=== PATIENT | male | born 1960 | race Caucasian/White ===

== ENCOUNTER 2016-07-15 10:04 | Day surgery (SDC) | payer MEDICAID ==
[2016-07-15] MEDS ORDERED: LACTATED RINGERS 1,000 ML IV ONE (10:38)
[2016-07-15] MEDS ORDERED: MIDAZOLAM 2 MG/2 ML VIAL IVP ONE (12:41)
[2016-07-15] MEDS ORDERED: fentaNYL 250 MCG/5 ML VIAL IVP ONE (12:41)
== END 2016-07-15 10:05 | disposition home or self-care (01) ==
PROC: 0DJD8ZZ Inspection of Lower Intestinal Tract, Via Natural or Artificial Opening Endoscopic (ICD-10-PCS; principal; 2016-07-15 11:15)
DX: Z12.11 Encounter for screening for malignant neoplasm of colon (principal); K64.8 Other hemorrhoids
CPT/HCPCS: 45378; J3010; J7120

== ENCOUNTER 2018-02-16 10:52 | Outpatient (CLI) | payer MEDICAID ==
--- NOTE | 2018-02-16 15:36 | XRAY Report ---
Reason: KNEE PAIN, LEFT Procedure Date: 02/16/2018 Accession Number: [id number] / [id number] Procedure: XR - Knee 3 View LT CPT Code: FULL RESULT: EXAM: LEFT KNEE RADIOGRAPHY EXAM DATE: 02/16/2018 11:18 AM. CLINICAL HISTORY: Knee pain, left. COMPARISON: None. TECHNIQUE: 3 views. FINDINGS: There is cortical irregularity about the lateral tibial eminence, possibly posttraumatic finding. Mild spurring is seen along the patella with no significant associated degenerative changes in the weightbearing compartments. No fractures or bone lesions. There is no joint effusion. Soft tissues are unremarkable. IMPRESSION: Irregularity about the lateral tibial eminence. RADIA
== END 2018-02-16 10:53 | disposition home or self-care (01) ==
LOC: DI 10:52
PROVIDERS: ATTEND Physician Assistant Medical
DX: M25.562 Pain in left knee (principal)

== ENCOUNTER 2020-04-25 08:00 | Outpatient (CLI) | payer MEDICAID | END 2020-04-25 23:59 | disposition home or self-care (01) | LOC: LAB.R 08:00 | PROVIDERS: ATTEND Orthopaedic Surgery | DX: S42.022A Displaced fracture of shaft of left clavicle, initial encounter for closed fracture (principal); Z20.828 Contact with and (suspected) exposure to other viral communicable diseases ==

== ENCOUNTER 2020-04-25 08:16 | Outpatient (CLI) | payer MEDICAID ==
--- NOTE | 2020-04-25 14:54 | XRAY Report ---
PROCEDURE: Clavicle LT INDICATIONS: L CLAVICLE FX TECHNIQUE: 2 views of the clavicle were acquired. COMPARISON: None. FINDINGS: Bones: There is a comminuted mid left clavicular fracture with approximately 15 mm overlap of proxima l and distal fragments. The more proximal fragment is approximately 9 mm superior to the distal fragm ent. The acromioclavicular joint space is widened measuring 13 mm. No suspicious bony lesions. Soft tissues: No suspicious soft tissue calcifications. IMPRESSION: Comminuted mid left clavicular fracture. Reviewed by: Vi Nielsen MD on 04/25/2020 2:52 PM PST Approved by: Vi Nielsen MD on 04/25/2020 2:52 PM PST Station ID: [id number]
== END 2020-04-25 23:59 | disposition home or self-care (01) ==
LOC: DI.N 08:16
PROVIDERS: ATTEND Orthopaedic Surgery
DX: S42.022A Displaced fracture of shaft of left clavicle, initial encounter for closed fracture (principal)

== ENCOUNTER 2020-04-27 10:56 | Day surgery (SDC) | payer MEDICAID ==
[2020-04-27] MEDS ORDERED: LACTATED RINGERS 1,000 ML IV ONE ×2 (11:01→14:00)
[2020-04-27] MEDS ORDERED: ceFAZolin 2 GM/50 ML 2 GM/50 ML BAG IV ONE (11:04)
[2020-04-27] MEDS ORDERED: CELECOXIB 100 MG CAPSULE PO ONE (11:04)
[2020-04-27] MEDS ORDERED: GABAPENTIN 400 MG CAPSULE ONE (11:04)
[2020-04-27] MEDS ORDERED: ACETAMINOPHEN 1,000 MG/100 ML 100 ML IV ONE (11:05)
--- NOTE | 2020-04-27 11:39 | ANESTHESIA ---
Pre-Anesthesia VS, & Labs - Diagnosis fx L clavicle - Procedure ORIF L clavicle, intermed rodding Vital Signs: Temp Pulse Resp BP Pulse Ox 36.3 C L 94 16 147/100 H 96 04/27/20 11:02 04/27/20 11:02 04/27/20 11:02 04/27/20 11:02 04/27/20 11:02 Height: 5 ft 8 in Weight (kg): 71.9 kg Body Mass Index: 24.0 BMI Classification: Healthy weight - NPO >8 hours - Lab Results Lab results reviewed: Yes Home Medications and Allergies No Known Home Medications 07/15/16 Allergies/Adverse Reactions: Allergies Allergy/AdvReac Type Severity Reaction Status Date / Time No Known Drug Allergies Allergy Verified 07/15/16 10:26 Anes History & Medical History - Anesthetic History Anesthesia Complications: reports: No previous complications Family history of Anesthesia Complications: Denies Family history of Malignant Hyperthermia: Denies - Medical History Cardiovascular: reports: None Pulmonary: reports: Other Gastrointestinal: reports: None Urinary: reports: None, Other (one kidney) Musculoskeletal: reports: Chronic back pain Endocrine/Autoimmune: reports: None Skin: reports: None - Surgical History General: Splenectomy, Colonoscopy Urologic: Nephrectomy Orthopedic: Other Exam General: Alert, Oriented x3, Cooperative Dental: WNL Mouth Openin Fingerbreadth Neck Mobility: Normal Mallampati classification: I Thyromental Distance: 4-6 cm Respiratory: Lungs clear, Normal breath sounds, No respiratory distress Cardiovascular: Regular rate Neurological: Normal speech Mental/Cognitive Status: Alert/Oriented X3, Normal for patient Cognitive Status: Within normal limits Plan Anesthesia Type: General Consent for Procedure(s) Verified and Reviewed: Yes Code Status: Attempt Resuscitation ASA classification: 2-Mild systemic disease Is this case an emergency?: No
[2020-04-27] MEDS ORDERED: ROPIVACAINE 0.2% PF 20ML VIAL ONE (11:45)
[2020-04-27] MEDS ORDERED: ROPIVACAINE 0.5% PF 20 ML AMPULE ONE (11:45)
[2020-04-27] MEDS ORDERED: fentaNYL 100 MCG/2 ML VIAL ONE (11:54)
[2020-04-27] MEDS ORDERED: MIDAZOLAM 2 MG/2 ML VIAL ONE ×2 (11:54→12:03)
[2020-04-27] MEDS ORDERED: LIDOCAINE-MPF 2% 5 ML VIAL ONE (11:58)
[2020-04-27] MEDS ORDERED: PROPOFOL 200 MG/20 ML VIAL IVP ONE (11:58)
[2020-04-27] MEDS ORDERED: SUCCINYLCHOLINE 200 MG/10 ML VIAL ONE (11:59)
[2020-04-27] MEDS ORDERED: ONDANSETRON 4 MG/2 ML VIAL ONE (12:02)
[2020-04-27] MEDS ORDERED: DEXAMETHASONE 10 MG/ML VIAL ONE (12:03)
[2020-04-27] MEDS ORDERED: ROPIVACAINE 0.5% PF 20 ML AMPULE SUBQ ONE (12:25)
[2020-04-27] MEDS ORDERED: fentaNYL 100 MCG/2 ML VIAL IVP PRN (12:35)
[2020-04-27] MEDS ORDERED: ePHEDrine 50 MG/ML VIAL IVP PRN (12:35)
[2020-04-27] MEDS ORDERED: METOCLOPRAMIDE 10 MG/2 ML VIAL IVP PRN (12:35)
[2020-04-27] MEDS ORDERED: ONDANSETRON 4 MG/2 ML VIAL IVP PRN ×2 (12:35→13:38)
[2020-04-27] MEDS ORDERED: MORPHINE 2 MG/ML CARPUJECT IVP PRN (12:35)
[2020-04-27] MEDS ORDERED: ATROPINE ABBOJECT 1 MG/10 ML SYRINGE IVP PRN (12:35)
[2020-04-27] MEDS ORDERED: NALOXONE 0.4 MG/ML VIAL IVP PRN (12:35)
[2020-04-27] MEDS ORDERED: LACTATED RINGERS 1,000 ML IV SCH (13:00)
[2020-04-27] MEDS ORDERED: HYDROcod/ACETAM 5/325 MG TABLET PO PRN (13:38)
[2020-04-27] MEDS ORDERED: LACTATED RINGERS 200 ML IV ONE (13:40)
--- NOTE | 2020-04-27 13:49 | OPERATIVE REPORT ---
Operative Report - General Procedure Date: 04/27/20 - Other Other Information/Narrative: Date of procedure: 04/27/2020 Preoperative diagnosis: comminuted left midshaft clavicle fracture Postoperative diagnosis: Same Procedure: Intramedullary nail fixation left clavicle shaft fracture with augmentation with locking plate Surgeon: Vick Implants: Acumed dual track nail, 3.8 x 100mm; superior locking plate Anesthesia: General Preamble: This healthy [id number] 60-year-old sustained a left clavicle fracture a few days ago. After discussion of operative and nonoperative management, patient elected to proceed with intramedullary nail fixation of his left clavicle fracture. He was seen in the preoperative holding area. Surgical site was marked. Consent and surgical site was confirmed. Patient received intravenous antibiotics preoperatively for prophylaxis against infection. He was then taken to the operating room. Operative note: Patient was placed in supine position with a saline bag in the midline to allow his shoulders to fall back. General anesthetic was administered. Upper chest and shoulder were then prepped and draped in usual sterile fashion. Incision then made in Litzy's lines centered over the fracture site. Skin subcutaneous tissue was tested with a scalpel. Blunt dissection carried out to the fracture and bone ends were cleared of soft tissues.Lateral segment was then delivered into the wound. It was then sequentially reamed by hand up to the 3.8 mm T-handle reamer. In similar fashion the medial segment was reamed by hand. The 3.8 mm drill was then advanced into the lateral segment and out the skin at the superior posterior clavicle. It was then passed medially across the fracture site and into the medial segment. Measured to 100 mm. The 7 mm drill was then passed through the stab incision over the superior shoulder, however blew out the posterior aspect of the distal segment. The nail was then fully seated by hand however fixation was tenuous. I therefore elected to augment fixation with a plate. An Acumed locking plate was then selected and placed on the superior aspect of the clavicle. Provisionally fixed with K wires in production position and reduction was confirmed on fluoroscopy. Plate was then secured to medially and laterally with multiple locking and nonlocking screws. Fluoroscopy used to confirm position and reduction. Final images were saved. Wound was thoroughly irrigated with normal saline. Closed in layers with 0 V-Loc, 2-0 Vicryl, 3 OV lock and Dermabond. Sterile dressings and applied followed by a sling. Patient was transferred to regular hospital and taken to recovery room stable condition with no intraoperative complications. Postoperative plan: Check x-ray in recovery. Discharge home when able. Dressing change postop day 5. Pendulum to active assisted shoulder range of motion as tolerated. Wean from sling as tolerated. No lifting over 25 pounds with the left arm. No overhead use of the arm. Follow-up in 7 to 10 days for wound check.
[2020-04-27] MEDS: HYDROmorphone 0.5 MG/0.5 ML SYRINGE IVP PRN ×2 (14:07→14:13)
[2020-04-27] MEDS ORDERED: HYDROmorphone 0.5 MG/0.5 ML SYRINGE ONE (14:15)
--- NOTE | 2020-04-27 14:26 | XRAY Report ---
PROCEDURE: OR C-Arm Procedure INDICATIONS: ORIF LEFT CLAVICLE TECHNIQUE: Intraoperative evaluation with 2 views COMPARISON: Prior clavicular plain films 3 days ago reviewed.. FINDINGS: There is a longitudinal cancellous screw traversing the fracture plane, in addition to a fixation natalie te with transverse fixation screws establishing normal alignment after open reduction. IMPRESSION: Normal clavicular alignment established for healing after ORIF. Reviewed by: Rafael Paz MD on 04/27/2020 2:24 PM PST Approved by: Rafael Paz MD on 04/27/2020 2:24 PM PST Station ID: [id number]
[2020-04-27 14:41] VITALS: BP 153/97
--- NOTE | 2020-04-27 14:44 | XRAY Report ---
PROCEDURE: Clavicle LT INDICATIONS: postop TECHNIQUE: 2 views of the clavicle were acquired. COMPARISON: Intraoperative plain film imaging same day reviewed.. FINDINGS: Bones: No previously unidentified fractures or dislocations. Normal alignment established after an axially oriented along cancellous screw has been placed crossing the fracture planes, in addition to a superior fixation plate and 3 transverse cortical screws both proximally and distally No suspicious bony lesions. Soft tissues: No suspicious soft tissue calcifications. IMPRESSION: Normal anatomic alignment established for healing after ORIF. Reviewed by: Rafael Paz MD on 04/27/2020 2:42 PM PST Approved by: Rafael Paz MD on 04/27/2020 2:42 PM PST Station ID: [id number]
[2020-04-27] MEDS ORDERED: HYDROcod/ACETAM 5/325 MG TABLET ONE (15:04)
--- NOTE | 2020-04-27 15:05 | ANESTHESIA POST OP EVALUATION ---
Anesthesia Post Eval - Post Anesthesia Eval Vitals: Last Vital Signs Temp 36.3 C L 04/27/20 14:40 Pulse 78 04/27/20 14:40 Resp 14 04/27/20 14:40 BP 153/97 H 04/27/20 14:40 Pulse Ox 94 04/27/20 14:40 CV Function Including HR & BP: positive: Stable Pain Control: positive: Satisfactory Nausea & Vomiting: positive: Negative Mental Status: positive: Baseline Respiratory Status: Airway Patent Hydration Status: Satisfactory Anesthesia Complications: positive: None
== END 2020-04-27 10:57 | disposition home or self-care (01) ==
LOC: SDS 10:56
PROVIDERS: ATTEND Orthopaedic Surgery
DX: Z90.5 Acquired absence of kidney (principal); S42.022A Displaced fracture of shaft of left clavicle, initial encounter for closed fracture; V48.4XXA Person boarding or alighting a car injured in noncollision transport accident, initial encounter
CPT/HCPCS: 23515; 73000; A9270; C1713; J0131; J0330; J0690; J1170; J7120

== ENCOUNTER 2020-06-02 07:16 | Outpatient (CLI) | payer MEDICAID ==
--- NOTE | 2020-06-03 09:42 | XRAY Report ---
PROCEDURE: Clavicle LT INDICATIONS: DISPLACED LT CLAVICLE Fx TECHNIQUE: 2 views of the clavicle were acquired. COMPARISON: 04/27/2020 FINDINGS: Bones: Postsurgical changes of ORIF with plate and screw fixation of the mid clavicle fracture. There is continued osseous remodeling suggestive of partial interval healing. There is mild elevation of t he distal clavicle and mild widening of the chromic clavicular interval measuring approximately 9 mm. The coracoclavicular interval is within normal limits. Soft tissues: No suspicious soft tissue calcifications. IMPRESSION: Postsurgical changes of ORIF of the mid clavicle fracture with signs of partial interval healing. Slight elevation of the distal clavicle with mild widening of a chronic clavicular interval concernin g for AC joint separation. Reviewed by: Al Burks DO on 06/03/2020 8:40 AM MAIKOL Approved by: Al Burks DO on 06/03/2020 8:40 AM MAIKOL Station ID: [id number]
== END 2020-06-02 23:59 | disposition home or self-care (01) ==
LOC: DI.N 07:16
PROVIDERS: ATTEND Orthopaedic Surgery
DX: S42.022D Displaced fracture of shaft of left clavicle, subsequent encounter for fracture with routine healing (principal)

== ENCOUNTER 2020-06-23 08:00 | Outpatient (CLI) | payer MEDICAID ==
[2020-06-23 12:07] LABS: BASOPHILS # (AUTO) 0.1 10^3/uL (0.0-0.1); EOSINOPHILS # (AUTO) 0.3 10^3/uL (0.0-0.7); EOSINOPHILS % (AUTO) 5.1 %; HGB - HEMOGLOBIN 14.7 g/dL (14.0-18.0); LYMPHOCYTES # (AUTO) 2.2 10^3/uL (1.5-3.5); LYMPHOCYTES % (AUTO) 43.8 %; MEAN CORPUSCULAR HEMOGLOBIN 31.5 pg (27.0-31.0); MEAN CORPUSCULAR VOLUME 95.5 fL (80.0-94.0); MEAN PLATELET VOLUME 11.3 fL (7.4-11.4); MONOCYTES # (AUTO) 0.7 10^3/uL (0.0-1.0); MONOCYTES % (AUTO) 14.1 %; NEUTROPHILS # (AUTO) 1.8 10^3/uL (1.5-6.6); NEUTROPHILS % (AUTO) 35.8 %; PLT - PLATELET COUNT 308 10^3/uL (130-450); RED BLOOD COUNT 4.67 10^6/uL (4.70-6.10); RED CELL DISTRIBUTION WIDTH 12.9 % (12.0-15.0); WHITE BLOOD COUNT 5.1 x10^3/uL (4.8-10.8)
[2020-06-23 12:30] LABS: ALBUMIN 4.2 g/dL (3.2-5.5); ALBUMIN/GLOBULIN RATIO 1.2 (1.0-2.2); ALKALINE PHOSPHATASE 56 IU/L (42-121); ALT ALANINE AMINOTRANSFERASE 20 IU/L (10-60); AST ASPARTATE AMINOTRANSFERASE 22 IU/L (10-42); BILIRUBIN,TOTAL 1.1 mg/dL (0.2-1.0); BUN - BLOOD UREA NITROGEN 16 mg/dL (6-20); CALCIUM 9.6 mg/dL (8.5-10.3); CARBON DIOXIDE - CO2 26 mmol/L (21-32); CHLORIDE 101 mmol/L (101-111); CHOLESTEROL 257 mg/dL; CREATININE 1.1 mg/dL (0.6-1.2); GLUCOSE 96 mg/dL (70-100); HDL CHOLESTEROL 65 mg/dL; LDL CHOLESTEROL,CALCULATED 169 mg/dL; LDL/HDL RATIO 2.6 (<3.6); TOTAL PROTEIN 7.7 g/dL (6.7-8.2); VLDL CHOLESTEROL 23 mg/dL
== END 2020-06-23 23:59 | disposition home or self-care (01) ==
LOC: LAB.WCP 08:00
PROVIDERS: ATTEND Physician Assistant Medical
DX: Z00.00 Encounter for general adult medical examination without abnormal findings (principal); Z12.11 Encounter for screening for malignant neoplasm of colon; S42.022A Displaced fracture of shaft of left clavicle, initial encounter for closed fracture
CPT/HCPCS: 36415; 80053; 80061; 83721; 84153; 84443; 85025

== ENCOUNTER 2023-05-06 13:40 | Outpatient (CLI) | payer MEDICAID ==
[2023-05-06 13:54] LABS: BASOPHILS # (AUTO) 0.1 10^3/uL (0.0-0.1); BASOPHILS % (AUTO) 0.9 %; EOSINOPHILS # (AUTO) 0.2 10^3/uL (0.0-0.7); EOSINOPHILS % (AUTO) 2.9 %; HCT - HEMATOCRIT 43.3 % (42.0-52.0); HGB - HEMOGLOBIN 14.4 g/dL (14.0-18.0); LYMPHOCYTES # (AUTO) 2.7 10^3/uL (1.5-3.5); MEAN CORPUSCULAR HEMOGLOBIN 30.7 pg (27.0-31.0); MEAN CORPUSCULAR HGB CONC 33.3 g/dL (32.0-36.0); MEAN CORPUSCULAR VOLUME 92.3 fL (80.0-94.0); MEAN PLATELET VOLUME 10.1 fL (7.4-11.4); MONOCYTES # (AUTO) 0.7 10^3/uL (0.0-1.0); NEUTROPHILS # (AUTO) 2.9 10^3/uL (1.5-6.6); PLT - PLATELET COUNT 294 10^3/uL (130-450); RED BLOOD COUNT 4.69 10^6/uL (4.70-6.10); RED CELL DISTRIBUTION WIDTH 13.2 % (12.0-15.0); WHITE BLOOD COUNT 6.6 x10^3/uL (4.8-10.8)
[2023-05-06 14:09] LABS: ALBUMIN 4.3 g/dL (3.2-5.5); ALBUMIN/GLOBULIN RATIO 1.3 (1.0-2.2); ALKALINE PHOSPHATASE 55 IU/L (42-121); ALT ALANINE AMINOTRANSFERASE 18 IU/L (10-60); AST ASPARTATE AMINOTRANSFERASE 19 IU/L (10-42); BILIRUBIN,TOTAL 0.6 mg/dL (0.2-1.0); BUN - BLOOD UREA NITROGEN 16 mg/dL (6-20); CALCIUM 9.8 mg/dL (8.5-10.3); CARBON DIOXIDE - CO2 27 mmol/L (21-32); CHLORIDE 103 mmol/L (101-111); CHOL/HDL RATIO 4.4 (<5.0); CHOLESTEROL 258 mg/dL; CREATININE 1.1 mg/dL (0.6-1.3); GFR - MDRD 67 (>89); GLUCOSE 68 mg/dL (74-104); HDL CHOLESTEROL 59 mg/dL; LDL CHOLESTEROL,CALCULATED 158 mg/dL; LDL/HDL RATIO 2.7 (<3.6); POTASSIUM 4.1 mmol/L (3.5-4.5); SODIUM 139 mmol/L (135-145); TOTAL PROTEIN 7.6 g/dL (6.4-8.9); TRIGLYCERIDES 205 mg/dL (48-352); VLDL CHOLESTEROL 41 mg/dL
== END 2023-05-06 13:41 | disposition home or self-care (01) ==
LOC: LAB 13:40
PROVIDERS: ATTEND Physician Assistant Medical
DX: Z00.00 Encounter for general adult medical examination without abnormal findings (principal); E78.5 Hyperlipidemia, unspecified; Z12.5 Encounter for screening for malignant neoplasm of prostate
CPT/HCPCS: 36415; 80053; 80061; 83721; 84153; 84443; 85025